=== PATIENT | male | born 1960 | race Caucasian/White ===

== ENCOUNTER 2017-05-26 20:18 | Emergency (ER) | payer MEDICARE, MEDICAID ==
--- NOTE | 2017-05-26 21:02 | RAD ---
Indication: Right wrist pain 3 views of the right wrist demonstrates degenerative changes of the radiocarpal joint. No fracture is noted. IMPRESSION: Degenerative changes in the radiocarpal and intercarpal joints.
[2017-05-26] MEDS ORDERED: Morphine INJ* 4 MG/ML 1 ML CARPUJECT IV ONE (21:55)
[2017-05-26] MEDS ORDERED: NS 0.9% 1000 ML* 1,000 ML IV ONE (21:55)
[2017-05-26] MEDS ORDERED: Ibuprofen TAB* 400 MG PO ONE (21:56)
[2017-05-26] MEDS ORDERED: oxyCODONE/Acetamin 5/325 MG* TAB PO ONE (22:56)
[2017-05-26 23:06] VITALS: BP 154/96
--- NOTE | 2017-05-27 06:00 | ED ---
Rosendo Lyon Angela, scribed for Westley Lacy MD on 05/26/17 at 2158 . Upper Extremity Pain - HPI Summary HPI Summary: This pt is a 56 y/o male, right hand dominant, [facility]/o right wrist pain since yesterday. Pt reports he was taking a shower yesterday when he slipped and hurt his right wrist. He denies LOC or head strike. Pt additionally c/o diarrhea x2 days and lightheadedness. He denies any sick contacts with diarrhea. Pt denies any recent antibiotics. Denies abd pain, vomiting, fever. Pt has taken pepto bismo with no relief. He has an upcoming appointment to see his PCP tomorrow. PMHx: arthritis. Pt lives alone. Pt has an aide who comes to his house to help him get around due to decreased mobility from arthritis. - History of Current Complaint Chief Complaint: EDExtremityUpper Stated Complaint: RT WRIST PAIN Hx Obtained From: Patient Mechanism Of Injury: Blunt Trauma Onset/Duration: Started Days Ago - 1, Traumatic, Still Present Timing: Lasting Days - 1 Severity Currently: Moderate Pain Location: Wrist - right Aggravating Factor(s): Other - palpation Alleviating Factor(s): Nothing Associated Signs & Symptoms: Positive: Negative Related History: Dominant Hand Right - Allergies/Home Medications Allergies/Adverse Reactions: Allergies Allergy/AdvReac Type Severity Reaction Status Date / Time No Known Allergies Allergy Verified 12/31/14 18:48 PMH/Surg Hx/FS Hx/Imm Hx Endocrine/Hematology History: Denies: Hx Diabetes, Hx Systemic Lupus Erythematosus, Hx Anemia Cardiovascular History: Reports: Hx Hypertension Denies: Hx Congestive Heart Failure GI History: Reports: Other GI Disorders - hx heartburn resolved Denies: Hx Jaundice History: Denies: Hx Dialysis, Hx Renal Disease Musculoskeletal History: Reports: Hx Arthritis, Hx Rheumatoid Arthritis, Other Musculoskeletal History - hx inability to walk r/t psoriatic arthritis dx 1989, chronic pain Neurological History: Reports: Other Neuro Impairments/Disorders - r/t arthritist [facility] none ambulatory since 1998 - Cancer History Cancer Type, Location and Year: per dr office ct scan ? T cell lymphoma Hx Chemotherapy: No - Surgical History Surgery Procedure, Year, and Place: left knee hx per pt - Immunization History Immunizations Up to Date: Yes Infectious Disease History: No Infectious Disease History: Denies: Traveled Outside the [place] in Last 30 Days - Family History Family History: No CA in family history - Social History Alcohol Use: Occasionally Substance Use Type: Reports: None Smoking Status (MU): Never Smoked Tobacco Review of Systems Negative: Fever, Chills Positive: Diarrhea. Negative: Abdominal Pain, Vomiting Musculoskeletal: Other - right wrist pain Neurological: Other - POS: lightheadedness All Other Systems Reviewed And Are Negative: Yes Physical Exam - Summary Physical Exam Summary: Appearance: Well appearing, no pain distress Skin: warm, dry, reflects adequate perfusion Head/face: normal Eyes: EOMI, BHUPINDER ENT: normal Neck: supple, non-tender Respiratory: CTA, breath sounds present Cardiovascular: RRR, pulses symmetrical Abdomen: non-tender, soft Bowel: Increased bowel sounds. Musculoskeletal: strength/ROM intact. RUE: minimal snuff box tenderness. Neuro: normal, sensory motor intact, A&Ox3 Triage Information Reviewed: Yes Vital Signs On Initial Exam: Initial Vitals Temp Pulse Resp BP Pulse Ox 98.3 F 82 16 152/110 99 05/26/17 20:23 05/26/17 20:23 05/26/17 20:23 05/26/17 20:23 05/26/17 20:23 Vital Signs Reviewed: Yes Procedures - Splinting Pre-Made Type: velcro - cock-up Splint: wrist - right Pre-Proc Neuro Vasc Exam: normal Post-Proc Neuro Vasc Exam: normal Diagnostics - Vital Signs Vital Signs Temp Pulse Resp BP Pulse Ox 05/26/17 20:23 98.3 F 82 16 152/110 99 - Laboratory Lab Statement: Any lab studies that have been ordered have been reviewed, and results considered in the medical decision making process. - Radiology Right wrist XR Xray Interpretation: No Acute Changes - IMPRESSION: Degenerative changes in the radiocarpal and intercarpal joints. Dr. Wolf has reviewed this radiology report. Radiology Interpretation Completed By: Radiologist Course/Dx - Course Course Of Treatment: pt with some diarrhea, tx here with fluids. Xray neg. splinted. F/U closely with PMD. Abd non-tender, no recent abx. - Diagnoses Provider Diagnoses: Acute diarrhea, Right wrist sprain Discharge - Discharge Plan Condition: Good Disposition: HOME Prescriptions: Loperamide CAP* [Imodium CAP*] 2 mg PO Q4H PRN #20 cap PRN Reason: Diarrhea Naproxen [Naproxen 500 mg] 500 mg PO BID #10 tab Patient Education Materials: Loperamide (By mouth), Wrist Sprain (ED) Referrals: Shon Garza MD [Primary Care Provider] - Additional Instructions: See your doctor as scheduled tomorrow afternoon. Drink plenty of liquids. Gatorade G2 or Vitamin water will help. Return if lightheaded, fever, vomiting, worse or other concerns. Ice, keep wrist splinted. The documentation as recorded by the Rosendo zuñiga Angela accurately reflects the service I personally performed and the decisions made by me, Westley Lacy MD.
== END 2017-05-27 00:15 | disposition home or self-care (01) ==
LOC: ED 20:18
DX: S63.501A Unspecified sprain of right wrist, initial encounter (principal); M25.531 Pain in right wrist; R19.7 Diarrhea, unspecified; R42 Dizziness and giddiness; X58.XXXA Exposure to other specified factors, initial encounter; Y92.9 Unspecified place or not applicable
CPT/HCPCS: 96374; 99282; A9270-GY; J2270